=== PATIENT | male | born 1950 | race Caucasian/White ===

== ENCOUNTER 2021-04-26 10:53 | Emergency (ER) | payer MEDICARE, SELFPAY ==
[2021-04-26 11:05] VITALS: BP 136/81; PULSE 98; RESP 12; TEMP 36.8; O2SAT 100
--- NOTE | 2021-04-26 12:08 | ECG_ITS ---
Measurements Intervals [place] Rate: 80 P: NV: 0 QRS: 40 QRSD: 122 T: 29 QT: 356 QTc: 412 Interpretive Statements ATRIAL FIBRILLATION RSR' IN V1 OR V2, CONSIDER RIGHT VENTRICULAR HYPERTROPHY OR RIGHT VCD BASELINE ARTIFACT- II, III, AVF ABNORMAL ECG Electronically Signed On 04-26-2021 12:38:35 PROGRAM CONSULTANT by Sathya Chung D.O.
--- NOTE | 2021-04-26 12:49 | ED.URI ---
HPI - URI/Sore Throat General Chief Complaint: Upper Respiratory Infection Stated Complaint: sinus issues/sore throat/ear pain Source: patient and RN notes reviewed Limitations: no limitations History of Present Illness HPI Narrative: The unvaccinated patient, a non-smoker/nondrinker on minimal meds yet without doctor,, presents with sinus issues. Patient states she has 1/2-month worsening of intermittent half year history of sinus congestion and left ear fullness associated with postnasal drip. No fever, cough, wheezing, smokers/pet allergy triggers; no loss of taste/smell, S OB, wheezing/sneezing, vomiting/diarrhea, CP. Symptoms are mild; vital signs remarkable stable but pulse oximetry is irregular. Patient declines same-day hospital referral, as he mentions he has been told he had a irregular heart beat-- that when checked was okay. So discussed will call/consult cardiology today. Related Data Allergies Allergy/AdvReac Type Severity Reaction Status Date / Time No Known Allergies Allergy Verified 04/26/21 11:09 Review of Systems Review of Systems: General/Constitutional: No weight loss,fever Eyes: N0: Redness,discharge Ears/Nose/Throat: No: Epistaxis,ear discharge Respiratory: Denies: Hemoptysis Gastrointestinal: No Vomiting, Bleeding-rectal Skin: No Lumps, eruption Neurologic: No Focal Weakness,Sz Hematologic: Denies: Petechiae/Purpura Psychiatric: No: Suicida ideationl All Other Systems: Reviewed and Negative PMFSH Family History Family History (Updated 12/25/15 @ 23:19 by DOCTOR UNKNOWN) Father Family history of malignant neoplasm Mother Family history of Alzheimer's disease Patient's mother is in good health Sibling Family history of diabetes mellitus in first degree relative Other Diabetes mellitus Family history of cardiovascular disease Social History Social History Alcohol intake: never Comments At time of signature, agree with nursing past medical, surgical, social and family history. There is no relevant family history pertinent to the presenting complaint Exam Narrative: General Appearance: Well appearing, Well nourished EYE: PERRLA, Conjunctiva clear Ears: Auditory canal normal, TM normal Nose: Rhinorrhea, Mucousal erythema Mouth/Throat: MM moist, Uvula midline, no pharyngeal erythema Neck: Supple, No adenopathy Respiratory: No respiratory distress, Breath sounds equal, Clear to auscultation Cardiovascular: Regularly irregular, no JVD Musculoskeletal: Non tender, Normal strength Skin: Warm, Dry Neurological: A&O x3, CN II-XII intact Psychiatric: Normal mood, Normal affect Course Course Emergency Course: EKG A. fib at controlled rate of 80, possible IC RBBB, QTC 0.412, no acute ST-T changes Vital Signs Vital signs: Vital Signs Temperature 98.3 F 04/26/21 11:05 Pulse Rate 98 04/26/21 11:05 Respiratory Rate 12 04/26/21 11:05 Blood Pressure 136/81 04/26/21 11:05 Pulse Oximetry 100 04/26/21 11:05 Temperature 98.3 F 04/26/21 11:05 Pulse Rate 98 04/26/21 11:05 Respiratory Rate 12 04/26/21 11:05 Blood Pressure 136/81 04/26/21 11:05 Pulse Oximetry 100 04/26/21 11:05 Discharge Plan Discharge Clinical Impression: Sinus headache Atrial fibrillation Qualifiers: Atrial fibrillation type: unspecified Qualified Code(s): I48.91 - Unspecified atrial fibrillation Patient Disposition: Home, Self-Care Condition: Stable Instructions: A-fib (Atrial Fibrillation) (ED), Rhinosinusitis (ED) Additional Instructions: Call to confirm appointment with cardiology Dr. Reagan's office [phone] [midweek if not contacted] Take full dose aspirin on a daily basis till then; if worsens with presyncope, chest pain, palpitations/tachycardia You may use OTC preparations like Flonase, Afrin, antihistamines [Claritin, Susi etc.] Prescriptions: New azelastine 137 mcg (0.1 %) aerosol,spray 137 mcg NASAL Q12H Qty: 30 RF
[2021-04-26] MEDS: ASPIRIN 325 MG ENTERIC TABLET PO (13:12)
--- NOTE | 2021-04-26 20:16 | PC.NURSE ---
patient had a COVID PCR sent to the lab
[2021-04-27 20:04] LABS: SARS-CoV-2 RNA PCR Positive
== END 2021-04-26 13:15 | disposition home or self-care (01) ==
PROVIDERS: Emergency Provider Emergency Medicine; PCP Family Medicine
DX: U07.1 COVID-19 (principal); I48.91 Unspecified atrial fibrillation
CPT/HCPCS: 93005; 99213; A9270; C9803; G0463; U0003; U0005

== ENCOUNTER 2021-05-28 10:15 | Emergency (ER) | payer MEDICARE, SELFPAY ==
--- NOTE | 2021-05-28 10:19 | ED.URI ---
HPI - URI/Sore Throat General Chief Complaint: Upper Respiratory Infection Stated Complaint: Sore throat Time Seen by Provider: 05/28/21 10:19 Source: patient and RN notes reviewed History of Present Illness HPI Narrative: Patient is a 8-year-old male who presents the urgent care with complaints of a sore throat. Patient states that it started over the summer and has been going on off and on for months. Patient states that for the last 3 days it has worsened and he has noted a lot of white in the back of his throat . Patient has been chronically using a nasal spray but denies of any inhaled corticosteroids. Denies of any other upper respiratory complaints. Denies of any fever, chills, nausea, vomiting. Denies of any known exposures. No other acute complaints. No acute distress noted. Patient read the plan of care. Some parts of this dictation were generated by voice recognition software and may contain typographical and/or grammatical inaccuracies. Related Data Allergies Allergy/AdvReac Type Severity Reaction Status Date / Time No Known Allergies Allergy Verified 05/28/21 10:23 Review of Systems Review of Systems: CONSTITUTIONAL: Denies fever, chills, or sweats. EYES: Denies visual changes, redness, or discharge. ENT: Denies rhinorrhea, congestion, otalgia. Reports of sore throat CARDIOVASCULAR: Denies chest pain, palpitations, or edema. RESPIRATORY: Denies cough or dyspnea. GASTROINTESTINAL: Denies abdominal pain, nausea, vomiting, or diarrhea. GENITOURINARY: Denies dysuria or hematuria. SKIN: Denies rash or itching. MUSCULOSKELETAL: Denies back pain, joint pain, or myalgia. NEUROLOGIC: Denies headache, numbness, or weakness. All other systems reviewed are negative, except as documented in HPI. [facility] Family History Family History (Updated 12/25/15 @ 23:19 by DOCTOR UNKNOWN) Father Family history of malignant neoplasm Mother Family history of Alzheimer's disease Patient's mother is in good health Sibling Family history of diabetes mellitus in first degree relative Other Diabetes mellitus Family history of cardiovascular disease Social History Social History Alcohol intake: never Comments At the time of my signature, I reviewed and agree with the nursing past medical, surgical, social, and family history. There is no relevant family history pertinent to the patient complaint. Exam Narrative: GENERAL: This is a well-nourished, well-developed patient, in no apparent distress. HEAD: normocephalic, atraumatic. EYES: PERRL. Sclera clear/white. Vision is grossly intact. EARS: External ears normal, auditory canals clear and without drainage, TMs normal without perforation. Hearing grossly intact. NOSE: External nose normal with no obvious nasal discharge, nares without redness, no rhinorrhea. THROAT: Mucous membranes moist. Moderate erythema to posterior pharynx with mild left tonsillar edema with moderate amount of notable thrush to posterior oropharynx and surface of the tongue NECK: Neck supple; moderate nontender cervical/submandibular lymphadenopathy RESPIRATORY: Clear to auscultation. Breath sounds equal bilaterally. No wheezes, rales, or rhonchi. SKIN: warm, intact with no suspicious lesions or rash, good texture and turgor. NEURO: awake, alert, and oriented to person, place and time. There were no obvious focal neurologic abnormalities. EXTREMITIES: No clubbing, cyanosis, or edema. Course Vital Signs Vital signs: Vital Signs Temperature 97.8 F 05/28/21 10:24 Pulse Rate 80 05/28/21 10:24 Respiratory Rate 16 05/28/21 10:24 Blood Pressure 139/96 H 05/28/21 10:24 Pulse Oximetry 100 05/28/21 10:24 Temperature 97.8 F 05/28/21 10:24 Pulse Rate 80 05/28/21 10:24 Respiratory Rate 16 05/28/21 10:24 Blood Pressure 139/96 H 05/28/21 10:24 Pulse Oximetry 100 05/28/21 10:24 Reviewed-patient is informed that they may have pre-hypertension or hypertension based on a bl
[2021-05-28 10:24] VITALS: BP 139/96; PULSE 80; RESP 16; TEMP 36.6; O2SAT 100
== END 2021-05-28 10:52 | disposition home or self-care (01) ==
PROVIDERS: Emergency Provider Nurse Practitioner Family; PCP Family Medicine
DX: B37.0 Candidal stomatitis (principal); R59.0 Localized enlarged lymph nodes
CPT/HCPCS: 87081; 87880; 99213; G0463

== ENCOUNTER 2021-06-17 13:33 | Outpatient (CLI) | payer MEDICARE, SELFPAY ==
--- NOTE | ~2021-06-17 | CT_ITS ---
EXAMINATION: CT soft tissue neck w con EXAM DATE: 06/17/2021 14:19 INDICATION: R22.1 - Localized swelling, mass and lump, neck. TECHNIQUE: Spiral CT of the neck was performed following intravenous injection of 75 mL Omnipaque 350 . Axial, coronal and sagittal images were reviewed. The dose-length product (DLP) for this examinat ion was 498.08 mGy-cm. The exposure was tailored according to patient size (auto mA exposure control ), and iterative reconstruction (ASIR) was used as additional dose reduction technique. There is no prior study for comparison. FINDINGS: There is tongue base soft tissue mass measuring about 2 cm, and severely thickened irregula rity of the left oropharyngeal mucosal surface. There is necrotic masslike region which appears to be centered within the left parotid gland, measuring 4.7 x 3.2 cm. This could be matted metastatic lymp hadenopathy given the suspicion oropharyngeal findings. Left internal jugular vein only enhances at t he inferior margin of this mass, which could be either causing mass defect or invading the carotid sh eath, internal jugular vein. Soft tissue density extending nearly to skull base; perineural intracran ial spread not excludable. Pathologically enlarged bilateral internal jugular chain necrotic lymphade nopathy both above and below the hyoid bone level. The superior mediastinum is unremarkable. The thyroid gland is unremarkable. Parapharyngeal and pre-g lottic fat planes are preserved. The orbits are unremarkable. Visualized sinuses and mastoid air cells are well aerated. There is moderate cervical spondylosis. Scattered upper lobe nodule suspicious for metastatic disease, largest in the left upper lobe measuri ng 14 [address] is recommended. IMPRESSION: Tongue base mass, left oropharyngeal mucosal thickening and irregularity suspicious for squamous cell cancer. Bilateral internal jugular metastatic lymphadenopathy, although primary left pa rotid cancer not entirely excludable. 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 Lung lesions s uspicious for metastatic disease. Reviewed, dictated and finalized at location B. [facility] IMPRESSION: Tongue base mass, left oropharyngeal mucosal thickening and irregu larity suspicious for squamous cell cancer. Bilateral internal jugular metastat ic lymphadenopathy, although primary left parotid cancer not entirely excludabl e. 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 Lung lesions suspicious for metastatic disease.
[2021-06-17 14:13] LABS: Estimated Glomerular Filt Rate > 60
== END 2021-06-17 13:34 | disposition home or self-care (01) ==
PROVIDERS: PCP Family Medicine; Visit Provider Otolaryngology
DX: R22.1 Localized swelling, mass and lump, neck (principal)
CPT/HCPCS: 70491; Q9967